=== PATIENT | female | born 1985 | race African-American/Black ===

== ENCOUNTER 2023-06-19 19:12 | Emergency (ER) | payer OTHER ==
[~2023-06-19] VITALS: Ht 157.5 cm; Wt 76.0 kg
[2023-06-19 19:27] VITALS: BP 128/65; PULSE 70; RESP 18; TEMP 98; O2SAT 100
[2023-06-19] MEDS: LIDOCAINE HCL/PF 1% 10 MG/ML 5ML VIAL INFIL ONE (23:15)
[2023-06-19] MEDS: TETANUS, DIPHTHERIA, PERTUSSIS VAC/PF 0.5ML (>10YR OLD) IM ONE (23:15)
[2023-06-20] MEDS ORDERED: BO1 TP (00:23)
[2023-06-20] MEDS ORDERED: TOPUD MT (00:23)
== END 2023-06-20 01:00 | disposition home or self-care (01) ==
LOC: ER 19:12
DX: S01.511A Laceration without foreign body of lip, initial encounter (principal); J45.909 Unspecified asthma, uncomplicated; W18.39XA Other fall on same level, initial encounter; Y93.89 Activity, other specified; Y92.89 Other specified places as the place of occurrence of the external cause; Y99.8 Other external cause status
CPT/HCPCS: 99283; 12011; 90471; 90715; J3490; 99282